=== PATIENT | female | born 1965 | race Caucasian/White ===

== ENCOUNTER → 2018-03-14 | Outpatient (CLI) | payer BC, OTHER | LOC: MC.RAD 09:00 | DX: Z12.31 Encounter for screening mammogram for malignant neoplasm of breast (principal); R92.0 Mammographic microcalcification found on diagnostic imaging of breast ==

== ENCOUNTER → 2018-03-21 | Outpatient (CLI) | payer BC, OTHER | LOC: MC.RAD 10:00 | DX: R92.0 Mammographic microcalcification found on diagnostic imaging of breast (principal) ==

== ENCOUNTER → 2018-03-26 | Outpatient (CLI) | payer BC, OTHER | LOC: MC.RAD 08:27 | DX: R92.0 Mammographic microcalcification found on diagnostic imaging of breast (principal) ==

== ENCOUNTER → 2019-02-02 | Outpatient (CLI) | payer BC, OTHER | LOC: COL.RAD 10:15 | DX: M25.561 Pain in right knee (principal) | CPT/HCPCS: J3301; Q9967 ==

== ENCOUNTER → 2020-04-26 | Outpatient (CLI) | payer BC, OTHER | LOC: MC.RAD 10:18 | DX: Z12.31 Encounter for screening mammogram for malignant neoplasm of breast (principal); Z98.82 Breast implant status ==